=== PATIENT | male | born 1990 | race Caucasian/White ===

== ENCOUNTER 2022-01-12 19:42 | Emergency (ER) | payer OTHER ==
[~2022-01-12] VITALS: Ht 182.9 cm; Wt 92.4 kg
[2022-01-12 19:43] VITALS: BP 153/78
[2022-01-13] MEDS ORDERED: ONDANSETRON 4MG ORAL DISINTEGRATING TAB PO ONE (00:50)
[2022-01-13] MEDS ORDERED: NEOSPORIN OINT 0.9 GM PKT TOP ONE (00:50)
[2022-01-13] MEDS ORDERED: LIDOCAINE 1% MDV 20ML VIAL SC ONE (00:50)
[2022-01-13] MEDS ORDERED: AUGMENTIN 875 MG TAB PO ONE (01:45)
[2022-01-13] MEDS ORDERED: AMOX875T2 PO (01:46)
== END 2022-01-13 01:53 | disposition home or self-care (01) ==
LOC: M ED 19:42
DX: S51.802A Unspecified open wound of left forearm, initial encounter (principal); W54.0XXA Bitten by dog, initial encounter; Y92.830 Public park as the place of occurrence of the external cause